=== PATIENT | female | born 1945 | race Caucasian/White ===

== ENCOUNTER 2019-03-07 11:45 | Day surgery (SDC) | payer OTHER ==
[~2019-03-07 11:45] MED LIST: HYZAAR 100-121 UDTAB; JANUVIA100 MG; NEXIUM
[2019-03-07] MEDS ORDERED: ALEVE220 M1 PO (16:30)
[2019-03-07] MEDS ORDERED: PERCOCET 5-3251 EACH PO (16:30)
[2019-03-07] MEDS ORDERED: DUI500 PO (16:30)
== END 2019-03-07 20:30 | disposition home or self-care (01) ==
LOC: CIR.AMB 11:45
DX: S86.012A Strain of left Achilles tendon, initial encounter (principal)